=== PATIENT | female | born 1980 | race Caucasian/White ===

== ENCOUNTER 2021-05-29 11:41 | Inpatient (IN) | payer OTHER, SELFPAY ==
[~2021-05-29] VITALS: Ht 170.2 cm; Wt 116.6 kg
--- NOTE | 2021-05-29 11:46 | NUR ---
ASHLEY MCKEON VIA GURNEY TO BED 02.
[2021-05-29 11:52] VITALS: BP 130/90
--- NOTE | 2021-05-29 11:58 | NUR ---
Respiratory Therapist at bedside for respiratory intervention. Patient tolerated.
[2021-05-29] MEDS ORDERED: ASPIRIN 81 MG TAB.CHEW PO ONE (12:00)
[2021-05-29] MEDS ORDERED: NITROGLYCERIN 50 MG/D5W PREMIX 250 ML IV ONE (12:00)
[2021-05-29] MEDS ORDERED: ALBUTEROL SULFATE/IPRATROPIU 3 ML SOL IH ONE ×2 (12:00→12:05)
[2021-05-29] MEDS ORDERED: MAGNESIUM SULFATE 50% 1,000 MG in NACL 0.9% 50 ML IV ONE (12:05)
[2021-05-29] MEDS ORDERED: ALBUTEROL 0.083% 2.5 MG/3 ML NEBU INH ONE (12:05)
[2021-05-29] MEDS ORDERED: methylPREDNISolone SS 125 MG/2 ML VIAL IVP ONE (12:05)
[2021-05-29] MEDS ORDERED: IPRATROPIUM 0.02% 0.5 MG/2.5 ML NEBU INH ONE (12:05)
--- NOTE | 2021-05-29 12:05 | NUR ---
40 y/o female presents to ed with sob, pt states she has been having sob since january 26, 2021, but has increased sob and diffculty breathing that started today. pt was picked up from [facility], on scene amr states pt was 80% on RA. given 10mg total of albuterol breathing tx. iv was placed 20g on left forearm. denies n/v/d. skin is pale/cool/dry/edematous, edema on bilateral lower extremities, pitting edema +3; aaox4, general weakness, lungs wheezing bl, shallow/tachypnea/accessory muscle use; hr even and tachy rate 122; pt denies any fever or cough at this time; patient states pain of 7/10 at this time; patient positioned for comfort; hob elevated; bedrails x2; bed down. ermd made aware of pt status. pmh: htn, copd, asthma allergy: lexiean
[2021-05-29] MEDS ORDERED: FUROSEMIDE 40 MG/4 ML VIAL IVP ONE ×2 (12:45→15:11)
--- NOTE | 2021-05-29 12:56 | NUR ---
cristhian and novel were swabbed
--- NOTE | 2021-05-29 13:46 | NUR ---
linens soiled with urine, pt linen was changed, diapered and repositioned to high fowlers. rt resting at this time
[2021-05-29 14:03] LABS: BASOPHILS % (AUTO) 0.1 % (0.0-2.0); HEMATOCRIT 22.1 % (36-48); HEMOGLOBIN 7.4 g/dL (12.0-16.0); LYMPHOCYTES # (AUTO) 0.4 K/uL (2.5-16.5); LYMPHOCYTES % (AUTO) 5.3 % (20.5-51.1); MEAN CORPUSCULAR HEMOGLOBIN 29 pg (27-31); MEAN CORPUSCULAR HGB CONC 33 g/dL (33-37); MEAN CORPUSCULAR VOLUME 87.2 fL (80-94); MONOCYTES # (AUTO) 0.4 K/uL (0.8-1.0); MONOCYTES % (AUTO) 5.3 % (1.7-9.3); NEUTROPHILS # (AUTO) 6.6 K/uL (1.8-7.7); NEUTROPHILS % (AUTO) 89.3 % (42.2-75.2); PLATELET COUNT (AUTO) 341 K/uL (140-450); RED BLOOD CELL COUNT(AUTO) 2.54 MIL/uL (4.20-5.40); RED CELL DISTRIBUTION WIDTH 18.7 % (11.6-13.7); WHITE BLOOD COUNT (AUTO) 7.4 K/uL (4.8-10.8)
[2021-05-29 14:53] LABS: ALBUMIN 2.7 g/dL (3.4-5.0); BILIRUBIN,DIRECT 0.1 mg/dL (0.0-0.3); TOTAL BILIRUBIN 0.4 mg/dL (0.0-1.0)
[2021-05-29 15:05] LABS: ANION GAP 13.9 (8-16); CARBON DIOXIDE 30.4 mmol/L (21-32); POTASSIUM 3.3 mmol/L (3.5-5.1)
[2021-05-29 15:06] LABS: CREATININE 1.1 mg/dL (0.6-1.3)
[2021-05-29] MEDS ORDERED: MAG SULF 2000 MG/WATER PREMIX 50 ML IV ONE (15:14)
--- NOTE | 2021-05-29 15:14 | NUR ---
per pharmacy, pull 2000mg bag and only give half for ordered 1000mg
--- NOTE | 2021-05-29 15:20 | NUR ---
Ultrasound at bedside.
--- NOTE | 2021-05-29 15:58 | NUR ---
linens, diaper and padding changed at this time
--- NOTE | 2021-05-29 18:22 | NUR ---
linens, diaper and padding changed at this time. oscar area cleaned. purewick was placed in oscar area.
--- NOTE | 2021-05-29 19:20 | NUR ---
pt is awake and alert. vss. pt in stable condition. pt given blanket, ice chips, and phone. all needs met at this time.
--- NOTE | 2021-05-29 21:00 | NUR ---
pt is awake and alert. vss.pt in stable condition. all needs met at this time. bed locked in lowest position. side rails x2 for safety.
--- NOTE | 2021-05-29 22:00 | NUR ---
PATIENT TRANSFERRED TO ICU BED 4 FROM ED. PATIENT ON BIPAP SATURATING IN THE 90'S%. RT PRESENT ASSESSING PATIENT DURING TRANSFER. NO SIGNS OF ACUTE DISTRESS NOTED, PATIENT AWAKE AOX4, NITRO DRIP RUNNING AT 10 MCG VIA LEFT 22 GAUGE WRIST. NOTED TO HAVE LEFT LEG SWELLING WITH REDNESS. SKIN INTACT WITH NO OPEN WOUNDS NOTED. ALL SAFETY MEASURES IN PLACE WILL CONTINUE TO CLOSELY MONITOR.
--- NOTE | 2021-05-29 22:01 | NUR ---
Patient will be admitted to care of . Admited to ICU. Will go to room ICU4 . Belongings list completed. Report to BRI GARCÍA.
[2021-05-30] VITALS (16 sets, daily range): BP systolic 84–136; BP diastolic 52–88
--- NOTE | 2021-05-30 00:20 | NUR ---
PLACED PT ON 10L OXYMIZER, PT IS SATURATING 93% OR ABOVE. BI-PAP REMAINS ON STAND-BY IN THE ROOM. PT IS IN NO RESPIRATORY DISTRESS. WILL CONTINUE TO MONITOR.
--- NOTE | 2021-05-30 03:00 | NUR ---
FOX CATHETER INSERTED, PATIENT TOLERATED WELL. PATIENT ON OXIMIZER AT 10 L WITH O2 SAT IN THE 90'S, NO SIGNS OF ACUTE DISTRESS NOTED. PATIENT STILL AWAKE AOX4. WILL CONTINUE TO MONITOR.
--- NOTE | 2021-05-30 07:30 | NUR ---
RECEIVED REPORT FROM GAMES DEALER. PT AWAKE IN BED WITH HOB ELEVATED, AOX4, ABLE TO MAKE NEEDS KNOWN, NO C/O PAIN, NO SOB AT REST, SOB UPON EXERTION. ON O2 9L VIA OXYMIZER, SAT AT 90s. SR ON MONITOR. WITH PERIPHERAL OV AT LW 22G AND RH 22G RUNNING NITRO DRIP AT 10MCG. FOX INTACT AND DRAINING.
--- NOTE | 2021-05-30 08:49 | NUR ---
PATIENT HAS BEEN SCREENED AND CATEGORIZED MODERATE NUTRITION RISK. PATIENT WILL BE SEEN WITHIN 3-5 DAYS OF ADMISSION. 06/01/21-06/03/21 REVIEWED BY MARK HERRERA RD
[2021-05-30] MEDS ORDERED: ACETAMINOPHEN 325 MG TAB PO PRN (08:55)
[2021-05-30] MEDS ORDERED: ONDANSETRON 4 MG/2 ML VIAL IM/IVP PRN (08:55)
[2021-05-30] MEDS ORDERED: DOCUSATE SODIUM 100 MG GELCAP PO PRN (08:55)
[2021-05-30] MEDS ORDERED: HYDROcodone/APAP 7.5/325 MG 1 TAB PO PRN (08:55)
[2021-05-30] MEDS ORDERED: POTASSIUM CHLORIDE 10 MEQ TABER PO PRN (08:55)
[2021-05-30] MEDS ORDERED: guaiFENesin DM 200/20 MG-10 ML 10 ML UDC PO PRN (08:55)
[2021-05-30] MEDS ORDERED: FUROSEMIDE 20 MG/2 ML VIAL IVP SCH (09:00)
[2021-05-30] MEDS: PANTOPRAZOLE 40 MG TABEC PO SCH (09:00)
[2021-05-30] MEDS: methylPREDNISolone SS 40 MG/ML VIAL IVP SCH ×2 (09:00→22:01)
[2021-05-30] MEDS ORDERED: ALBUTEROL SULFATE/IPRATROPIU 3 ML SOL IH PRN (09:00)
--- NOTE | 2021-05-30 09:00 | NUR ---
DUE MEDS GIVEN TOLERATED WELL
[2021-05-30] MEDS ORDERED: METOCLOPRAMIDE 10 MG/2 ML INJ VIAL IVP PRN (09:35)
--- NOTE | 2021-05-30 10:00 | NUR ---
CALLED [facility], [facility], TO VERIFY DOSE. WILL FAX AUTH
[2021-05-30] MEDS: FUROSEMIDE 40 MG/4 ML VIAL IVP SCH ×2 (10:27→21:59)
--- NOTE | 2021-05-30 10:50 | NUR ---
REPORT GIVEN TO CHERRY GREGORY
[2021-05-30] MEDS ORDERED: TRAZ-343 PO (11:10)
[2021-05-30] MEDS ORDERED: METF-430 PO (11:10)
[2021-05-30] MEDS ORDERED: FLUO40CA6 PO (11:10)
[2021-05-30] MEDS ORDERED: METO-485 PO (11:10)
[2021-05-30] MEDS ORDERED: PRAZ1CAP5 PO (11:10)
[2021-05-30] MEDS ORDERED: FURO-570 PO (11:10)
[2021-05-30] MEDS ORDERED: SPIMDI INH (11:10)
[2021-05-30] MEDS ORDERED: ACAM333T PO (11:10)
[2021-05-30] MEDS ORDERED: NALO4SPR NS (11:10)
[2021-05-30] MEDS ORDERED: CABE0.5T1 PO (11:10)
[2021-05-30] MEDS ORDERED: METO50TE2 PO (11:10)
[2021-05-30] MEDS ORDERED: SYN.075 PO (11:10)
[2021-05-30] MEDS ORDERED: BUPR300T70 PO (11:10)
[2021-05-30] MEDS ORDERED: LAM25 PO (11:10)
[2021-05-30] MEDS ORDERED: PRED20TA5 PO (11:10)
[2021-05-30] MEDS ORDERED: DABI150C PO (11:10)
--- NOTE | 2021-05-30 12:00 | NUR ---
ASSUMED CARE OF PT, DENIES CP AT THIS TIME. AWAKE AND ALERT
[2021-05-30] MEDS ORDERED: DEXTROSE 50% 50 ML SYR IVP PRN (13:25)
[2021-05-30] MEDS ORDERED: INSULIN LISPRO SLIDING SCALE 100 UNITS/ML VIAL SUBQ PRN (13:25)
[2021-05-30] MEDS: PIPERACILLIN/TAZOBACTAM 3.375 GM in DEXTROSE 5% 50 ML IV SCH ×2 (13:37→21:58)
--- NOTE | 2021-05-30 14:21 | NUR ---
PT AWAKE AND ALERT, DENIES PAIN. NO ACUTE CHANGES IN PT STATUS
[2021-05-30] MEDS ORDERED: CRUSHER, PILL MC ONE (14:37)
[2021-05-30] MEDS: DABIGATRAN ETEXILATE MESYLAT 75 MG CAP PO SCH ×2 (15:00→22:03)
[2021-05-30] MEDS: METHADONE 10 MG TAB PO SCH (15:00)
--- NOTE | 2021-05-30 15:02 | NUR ---
DR CONTRERAS AT BEDSIDE EVALUATING PATIENT
[2021-05-30] MEDS: BLOOD GLUCOSE MONITORING 1 DEV DEV FS SCH ×2 (16:35→21:25)
--- NOTE | 2021-05-30 17:51 | NUR ---
pt awake and alert, received juice per request. does not appear in distress.
[2021-05-30 17:56] LABS: PROTHROMBIN TIME 9.7 secs (10.8-13.4)
[2021-05-30 18:05] LABS: CHOL/HDL RATIO 2.3 (1-4.5); FREE T4 (FREE THYROXINE) 0.73 ng/dL (0.76-1.46); MAGNESIUM 1.8 mg/dL (1.8-2.4); THYROID STIMULATING HORMONE 1.09 uIU/mL (0.34-3.74)
--- NOTE | 2021-05-30 18:51 | NUR ---
PT SEATED UPRIGHT GIVEN DINNER TRAY. DOES NOT APPEAR IN DISTRESS. NO ACUTE CHANGES IN PT STATUS
--- NOTE | 2021-05-30 20:00 | NUR ---
RECEIVED PATIENT AWAKE IN BED. PATIENT AWAKE AND ALERT. PT DENIES ANY DISCOMFORT OR PAIN AT THIS TIME. PT ON 9L 02 VIA OXIMIZER. BLE EDEMA NOTED. FOX CATH IN PLACE, DRAINING CLEAR YELLOW URINE. PLAN OF CARE DISCUSSED. PATIENT VERBALIZED UNDERSTANDING. BED LOWERED WITH CALL LIGHT WITHIN REACH
--- NOTE | 2021-05-30 21:59 | NUR ---
DUE MEDS ADMINISTERED. PT TOLERATED WELL
[2021-05-30] MEDS: ZOLPIDEM 5 MG TAB PO PRN (22:03)
[2021-05-31] VITALS: BP 111/63
--- NOTE | 2021-05-31 03:06 | NUR ---
PT ASLEEP IN BED. NO S/S OF DISTRESS NOTED
[2021-05-31 04:00] VITALS: BP 118/64
[2021-05-31] MEDS: PIPERACILLIN/TAZOBACTAM 3.375 GM in DEXTROSE 5% 50 ML IV SCH ×3 (06:01→21:00)
[2021-05-31 06:47] LABS: BASOPHILS % (AUTO) 0.2 % (0.0-2.0); EOSINOPHILS % (AUTO) 0.3 % (0.0-4.0); HEMATOCRIT 22.8 % (36-48); HEMOGLOBIN 7.6 g/dL (12.0-16.0); LYMPHOCYTES # (AUTO) 0.4 K/uL (2.5-16.5); LYMPHOCYTES % (AUTO) 5.6 % (20.5-51.1); MEAN CORPUSCULAR HEMOGLOBIN 29 pg (27-31); MEAN CORPUSCULAR HGB CONC 33 g/dL (33-37); MONOCYTES # (AUTO) 0.3 K/uL (0.8-1.0); MONOCYTES % (AUTO) 4.5 % (1.7-9.3); NEUTROPHILS # (AUTO) 6.1 K/uL (1.8-7.7); NEUTROPHILS % (AUTO) 89.4 % (42.2-75.2); PLATELET COUNT (AUTO) 374 K/uL (140-450); RED BLOOD CELL COUNT(AUTO) 2.62 MIL/uL (4.20-5.40); WHITE BLOOD COUNT (AUTO) 6.9 K/uL (4.8-10.8)
[2021-05-31] MEDS: BLOOD GLUCOSE MONITORING 1 DEV DEV FS SCH ×3 (07:03→21:15)
--- NOTE | 2021-05-31 07:21 | NUR ---
PATIENT ENDORSED TO AM NURSE FOR CONTINUITY OF CARE
[2021-05-31 07:22] LABS: CREATININE 0.9 mg/dL (0.6-1.3)
--- NOTE | 2021-05-31 07:22 | NUR ---
RECEIVED BEDSIDE REPORT FROM CRACKING UNIT OPERATOR NURSE THANIA. PT RESTING, NO DISTRESS NOTED, ON 8LPM O2 VIA OXYMIZER, TOLERATED WELL, SATURATING @ 100%. IV TO LEFT AC 20G, PATENT INTACT, SL, IV TO LEFT WRIST 22G, PATENT INTACT, INFUSING NS @ TKO. TOLERATED WELL. FOX CATH IN PLACE DRAINING TO GRAVITY. INITIAL ASSESSMENT DONE, ALL SAFETY PRECAUTION MET, CALL LIGHT WITHIN REACH, WILL CONTINUE TO MONITOR.
[2021-05-31 07:24] LABS: ANION GAP 7.7 (8-16); CARBON DIOXIDE 45.3 mmol/L (21-32)
[2021-05-31 08:00] VITALS: BP 107/49
[2021-05-31] MEDS: ALBUTEROL SULFATE/IPRATROPIU 3 ML SOL IH SCH ×3 (09:09→20:13)
[2021-05-31] MEDS: METHADONE 10 MG TAB PO SCH (09:12)
[2021-05-31] MEDS: FUROSEMIDE 40 MG/4 ML VIAL IVP SCH ×2 (09:12→20:59)
[2021-05-31] MEDS: methylPREDNISolone SS 40 MG/ML VIAL IVP SCH ×2 (09:12→20:59)
[2021-05-31] MEDS: PANTOPRAZOLE 40 MG TABEC PO SCH (09:13)
[2021-05-31] MEDS: DABIGATRAN ETEXILATE MESYLAT 75 MG CAP PO SCH ×2 (09:13→20:51)
--- NOTE | 2021-05-31 09:13 | NUR ---
DUE MEDICATIONS ADMINISTERED, PT TOLERATED WELL, NO DISTRESS NOTED, WILL CONTINUE TO MONITOR
--- NOTE | 2021-05-31 11:11 | NUR ---
ENDORSED PT TO TELE NURSE JEREMY GREGORY, FOR CONTINUOUS OF CARE, PT IS GOING TO BE TRANSFERRED TO ROOM 118.
--- NOTE | 2021-05-31 11:25 | NUR ---
TRANSFERRED PT TO ROOM 118, PT TOLERATED WELL. CALL LIGHT WITHIN REACH. BED POSITION IN LOWEST.
[2021-05-31 12:00] VITALS: BP 110/74
[2021-05-31 12:44] LABS: T4 (THYROXINE) 4.2 ug/dL (4.5 - 12.0)
[2021-05-31] MEDS ORDERED: acetaZOLAMIDE sodium 500 MG VIAL IVP SCH (14:00)
[2021-05-31 16:00] VITALS: BP 104/60
[2021-05-31] MEDS ORDERED: NITROGLYCERIN 0.4 MG TAB SL PRN (17:15)
[2021-05-31] MEDS ORDERED: NITROGLYCERIN 0.4 MG TAB SL ONE (17:17)
[2021-05-31 20:00] VITALS: BP 114/67
--- NOTE | 2021-05-31 20:12 | NUR ---
PT SLEEPING COMFORTABLY ON 8L OXY W/ NO DISTRESS NOTED WILL CONTINUE TO MONITOR
[2021-05-31] MEDS: ZOLPIDEM 5 MG TAB PO PRN (20:54)
[2021-06-01] VITALS: BP 107/50
[2021-06-01 04:00] VITALS: BP 117/55
[2021-06-01] MEDS: PIPERACILLIN/TAZOBACTAM 3.375 GM in DEXTROSE 5% 50 ML IV SCH ×3 (05:12→21:38)
[2021-06-01] MEDS: BLOOD GLUCOSE MONITORING 1 DEV DEV FS SCH ×5 (06:31→20:52)
--- NOTE | 2021-06-01 07:30 | NUR ---
RECEIVED REPORT FROM HOUSING ASSISTANT PROPERTY MANAGER NURSE FOR CONTINUITY OF CARE. PT IN BED AWAKE. RESPIRATION EVEN AND UNLABORED. ON O2 VIA OXIMIZER AT 8L. DENIES PAIN AT THIS TIME. CALL LIGHT WITHIN REACH. ALL SAFETY MEASURES IN PLACE.
[2021-06-01 07:40] LABS: BASOPHILS % (AUTO) 0.1 % (0.0-2.0); EOSINOPHILS % (AUTO) 0.3 % (0.0-4.0); HEMATOCRIT 22.9 % (36-48); HEMOGLOBIN 7.5 g/dL (12.0-16.0); LYMPHOCYTES # (AUTO) 0.6 K/uL (2.5-16.5); MEAN CORPUSCULAR HEMOGLOBIN 28 pg (27-31); MEAN CORPUSCULAR HGB CONC 33 g/dL (33-37); MEAN CORPUSCULAR VOLUME 86.4 fL (80-94); MONOCYTES # (AUTO) 0.5 K/uL (0.8-1.0); MONOCYTES % (AUTO) 8.1 % (1.7-9.3); NEUTROPHILS # (AUTO) 5.2 K/uL (1.8-7.7); NEUTROPHILS % (AUTO) 81.5 % (42.2-75.2); PLATELET COUNT (AUTO) 411 K/uL (140-450); RED BLOOD CELL COUNT(AUTO) 2.65 MIL/uL (4.20-5.40); RED CELL DISTRIBUTION WIDTH 18.2 % (11.6-13.7); WHITE BLOOD COUNT (AUTO) 6.3 K/uL (4.8-10.8)
[2021-06-01] MEDS: ALBUTEROL SULFATE/IPRATROPIU 3 ML SOL IH SCH ×3 (07:55→19:21)
[2021-06-01 08:00] VITALS: BP 116/58
[2021-06-01 08:03] LABS: ANION GAP 8.9 (8-16); CREATININE 0.7 mg/dL (0.6-1.3); POTASSIUM 4.2 mmol/L (3.5-5.1)
[2021-06-01 08:05] LABS: CARBON DIOXIDE 43.3 mmol/L (21-32)
--- NOTE | 2021-06-01 08:05 | NUR ---
RECEIVED CALL FROM [facility] FOR CRITICAL VALUE CO2 43.[address] CONTRERAS MADE AWARE OF CRITICAL VALUE RESULTS. NO CHANGE AT THIS TIME.
[2021-06-01] MEDS: FUROSEMIDE 40 MG/4 ML VIAL IVP SCH (09:55)
[2021-06-01] MEDS: DABIGATRAN ETEXILATE MESYLAT 75 MG CAP PO SCH ×2 (09:55→20:50)
[2021-06-01] MEDS: METHADONE 10 MG TAB PO SCH (09:55)
[2021-06-01] MEDS: methylPREDNISolone SS 40 MG/ML VIAL IVP SCH ×2 (09:55→21:38)
[2021-06-01] MEDS: PANTOPRAZOLE 40 MG TABEC PO SCH (09:56)
--- NOTE | 2021-06-01 10:35 | NUR ---
PT IN BED AWAKE, A/O X 4. BREATHING SYMMETRICAL. O2 TITRATED TO 6L VIA OXIMIZER AND TOLERATING WELL. DENIES PAIN OR DISCOMFORT AT THIS TIME. SCHEDULED AM MEDS GIVEN PER MD ORDER. CALL LIGHT WITHIN REACH. ALL SAFETY MEASURES IN PLACE. WILL CONTINUE TO MONITOR.
[2021-06-01 12:00] VITALS: BP 109/73
--- NOTE | 2021-06-01 13:00 | NUR ---
PT IN BED, ALERT AND AWAKE. RESPIRATION EVEN AND UNLABORED. ON O2 VIA OXIMIZER AT 6L, TOLERATING WELL. O2 SAT AT 100% BLOOD SUGAR WAS 152 AT 1222, INSULIN GIVEN PER SLIDING SCALE PER MD ORDER. SCHEDULED MEDICATION GIVEN ORDERED. CALL LIGHT PLACED WITHIN REACH.
--- NOTE | 2021-06-01 14:46 | NUR ---
SPOKE TO . FOX CATHETER WILL BE REMOVED. PT GIVEN WALKER TO USE FOR AMBULATION TO AND FROM RESTROOM. RT NOTIFIED FOR O2 EXTENSION TUBING. PATIENT SATURATING AT 95% ON 6L NC OXIMIZER
[2021-06-01 16:00] VITALS: BP 126/71
--- NOTE | 2021-06-01 16:30 | NUR ---
BLOOD SUGAR 144, NO INSULIN COVERAGE. PT IN BED, AWAKE. BREATHING EVEN AND UNLABORED. ON O2 VIA OXIMIZER AT 6L. HOB KEPT ELEVATED. CALL LIGHT WITHIN REACH. WILL CONTINUE TO MONITOR
--- NOTE | 2021-06-01 19:21 | NUR ---
PT IS SITTING UP IN BED WITH NO SIGNS OF RESPIRATORY DISTRESS SATING 93% ON 4LPM OXYMIZER. PT HAS A DRY NON PRODUCTIVE COUGH, BS COARSE APICES DIMINISHED BASES, TOLERATED HHN TX WELL. WILL CONTINUE TO MONITOR.
--- NOTE | 2021-06-01 19:38 | NUR ---
ENDORSED PT TO ANIMATION CAMERA OPERATOR NURSE
--- NOTE | 2021-06-01 19:39 | NUR ---
RECEIVED REPORT FROM AM SHIFT NURSE FOR CONTINUITY OF CARE. PATIENT IN BED AWAKE, ALERT AND VERBALLY RESPONSIVE. ABLE TO VERBALIZED NEEDS. NOT IN DISTRESS. DENIES ANY PAIN OR DISCOMFORT AT THIS TIME. BREATHING EVEN AND UNLABORED WITH NO SOB NOTED. ON O2 VIA OXIMIZER AT 8L. ALL SAFETY MEASURES IN PLACE. CALL LIGHT WITHIN REACH. WILL CONTINUE WITH THE CURRENT PLAN OF CARE.
[2021-06-01 20:00] VITALS: BP 107/55
[2021-06-01] MEDS: ZOLPIDEM 5 MG TAB PO PRN (20:51)
--- NOTE | 2021-06-01 20:53 | NUR ---
ADMINISTERED SCHEDULE MEDICATIONS PER MD ORDER. TOLERATED WELL. NO ASE NOTED. ALL SAFETY MEASURES IN PLACE. CALL LIGHT WITHIN REACH. WILL CONTINUE TO MONITOR.
--- NOTE | 2021-06-01 23:21 | NUR ---
CHECKED ON PATIENT. PATIENT SLEEPING WELL. VISIBLE CHEST RISING AND FALLING. NO SOB NOTED. ALL SAFETY MEASURES IN PLACE. CALL LIGHT WITHIN REACH. WILL CONTINUE TO MONITOR.
[2021-06-02] VITALS: BP 113/60
--- NOTE | 2021-06-02 01:37 | NUR ---
ROUNDED ON PATIENT. SLEEPING WELL. VISIBLE CHEST RISING AND FALLING. ALL SAFETY MEASURES IN PLACE. CALL LIGHT WITHIN REACH. WILL CONTINUE TO MONITOR.
--- NOTE | 2021-06-02 03:51 | NUR ---
ANSWERED PATIENT CALL LIGHT. PATIENT JUST WANT TO CHECK HER BP. BP IS OK 135/70 PULSE=74 [id number]=57.DENIES ANY PAIN AT THIS TIME. CALL LIGHT WITHIN REACH. WILL CONTINUE TO MONITOR.
[2021-06-02 04:00] VITALS: BP 135/70
--- NOTE | 2021-06-02 05:55 | NUR ---
ROUNDED ON PATIENT. PATIENT ASLEEP. CALL LIGHT WITHIN REACH. WILL CONTINUE TO MONITOR.
[2021-06-02] MEDS: PIPERACILLIN/TAZOBACTAM 3.375 GM in DEXTROSE 5% 50 ML IV SCH ×2 (06:23→12:14)
[2021-06-02] MEDS: BLOOD GLUCOSE MONITORING 1 DEV DEV FS SCH ×2 (07:00→11:29)
[2021-06-02] MEDS: ALBUTEROL SULFATE/IPRATROPIU 3 ML SOL IH SCH (07:23)
--- NOTE | 2021-06-02 07:23 | NUR ---
RECEIVED REPORT FROM ROOFER APPRENTICE NURSE. NO S/S OF DISTRESS. BREATHING SYMMETRICAL. CALL LIGHT IN REACH. ALL SAFETY MEASURES IN PLACE.
[2021-06-02 07:26] LABS: BASOPHILS % (AUTO) 0.1 % (0.0-2.0); EOSINOPHILS % (AUTO) 0.1 % (0.0-4.0); HEMATOCRIT 24.6 % (36-48); LYMPHOCYTES # (AUTO) 0.7 K/uL (2.5-16.5); LYMPHOCYTES % (AUTO) 10.1 % (20.5-51.1); MEAN CORPUSCULAR HEMOGLOBIN 28 pg (27-31); MEAN CORPUSCULAR HGB CONC 32 g/dL (33-37); MEAN CORPUSCULAR VOLUME 86.9 fL (80-94); MONOCYTES # (AUTO) 0.3 K/uL (0.8-1.0); MONOCYTES % (AUTO) 4.6 % (1.7-9.3); NEUTROPHILS % (AUTO) 85.1 % (42.2-75.2); PLATELET COUNT (AUTO) 448 K/uL (140-450); RED BLOOD CELL COUNT(AUTO) 2.84 MIL/uL (4.20-5.40); RED CELL DISTRIBUTION WIDTH 18.4 % (11.6-13.7); WHITE BLOOD COUNT (AUTO) 7.1 K/uL (4.8-10.8)
--- NOTE | 2021-06-02 07:35 | NUR ---
ENDORSED PATIENT REPORT TO AM SHIFT NURSE FOR CONTINUITY OF CARE. PATIENT IS STABLE.
[2021-06-02 07:50] LABS: CREATININE 0.7 mg/dL (0.6-1.3); POTASSIUM 4.7 mmol/L (3.5-5.1)
--- NOTE | 2021-06-02 07:58 | NUR ---
SPOKE TO RT, PT O2 WAS TITRATED TO 3L OXIMIZER. PT O2 WAS INCREASED TO 4L AFTER DESTAING TO 91%. PT TOLERATING WELL. NO S/S OF DISTRESS. CALL LIGHT IN REACH. ALL SAFETY MEASURES IN PLACE
[2021-06-02 08:00] VITALS: BP 143/78
[2021-06-02 08:04] LABS: CARBON DIOXIDE 44.7 mmol/L (21-32)
[2021-06-02] MEDS ORDERED: FUROSEMIDE 40 MG/4 ML VIAL IVP SCH (09:00)
[2021-06-02] MEDS: PANTOPRAZOLE 40 MG TABEC PO SCH (09:36)
[2021-06-02] MEDS: methylPREDNISolone SS 40 MG/ML VIAL IVP SCH (09:36)
--- NOTE | 2021-06-02 09:36 | NUR ---
ALL SCHEDULED AM MEDICATIONS GIVEN PER MD ORDER. PT IN BED, RESPIRATION EVEN AND UNLABORED. DENIES PAIN. CALL LIGHT WITHIN EASY REACH
[2021-06-02] MEDS: DABIGATRAN ETEXILATE MESYLAT 75 MG CAP PO SCH (09:37)
[2021-06-02] MEDS: METHADONE 10 MG TAB PO SCH (09:38)
--- NOTE | 2021-06-02 10:09 | NUR ---
TITRATED PT O2 TO 3L OXIMIZER. PT SATURATION 95-97
[2021-06-02] MEDS ORDERED: traZODone 50 MG TAB PO PRN (10:20)
--- NOTE | 2021-06-02 10:33 | NUR ---
CHANGED OXYGEN DEVICE: OXYMIZER AT 3 LPM TO NASAL CANNULA AT [address] SATURATION 94% DR. ALICIA STANFORD AT BEDSIDE AND AWARE (1038) LAMONTEN/RN NOTIFIED
--- NOTE | 2021-06-02 10:40 | NUR ---
PT ON 3L VIA NC. CLEARED BY CHANNEL LIP WETTER FOR DISCHARGE TODAY
--- NOTE | 2021-06-02 11:32 | NUR ---
BLOOD SUGAR 96, NO INSULIN COVERAGE NEEDED. PT IN BED, ALERT, AWAKE. ON O2 VIA NC AT 3L. ENCOURAGED TO DO DEEP BREATHING. HOB KEPT ELEVATED. DENIES PAIN AT THIS TIME. WILL CONTINUE TO MONITOR
[2021-06-02 12:00] VITALS: BP 126/64
--- NOTE | 2021-06-02 12:12 | NUR ---
CALLED DR. ALICIA STANFORD AT [facility] AB RESULTS EXCHANGE/[place] TO PAGE TARSHA PATIENT INFO AND CALL BACK NUMBER GIVEN
--- NOTE | 2021-06-02 12:15 | NUR ---
CALL BACK FROM DR. VARGAS REVIEWED ABG RESULTS POSSIBLE VENOUS PATIENT STATUS: SATURATION 93% ON SUPPLEMENTAL OXYGEN 3 LPM VIA NC NO DISTRESS GOOD CHEST RISE AIRWAY PATENT LOC AWAKE AND ALERT "TALKING ON PHONE" NO NEW ORDERS
[2021-06-02 12:54] VITALS: BP 143/78
[2021-06-02] MEDS ORDERED: METOPROLOL 50 MG TAB PO SCH (13:00)
[2021-06-02] MEDS ORDERED: ACAMPROSATE CALCIUM 333 MG PO SCH (13:00)
--- NOTE | 2021-06-02 14:46 | NUR ---
PT DISCHARGED HOME. TELE BOX REMOVED. ID BAND REMOVED. IV REMOVED, CANULA INTACT. NO S/S OF DISTRESS. CALL LIGHT IN REACH. ALL SAFETY MEASURES IN PLACE
[2021-06-02] MEDS ORDERED: PRAZOSIN 1 MG CAP PO SCH (21:00)
[2021-06-02] MEDS ORDERED: FUROSEMIDE 40 MG TAB PO SCH (21:00)
[2021-06-03] MEDS ORDERED: LEVOTHYROXINE 0.075 MG TAB PO SCH (06:30)
[2021-06-03] MEDS ORDERED: FLUoxetine 20 MG CAP PO SCH (09:00)
[2021-06-03] MEDS ORDERED: CABERGOLINE 0.5 MG PO SCH (09:00)
[2021-06-03] MEDS ORDERED: NON-FORMULARY ITEM (Bupropion HCl* (Wellbutrin Xl*) 300 MG) PO SCH (09:00)
[2021-06-03] MEDS ORDERED: buPROPion 150 MG TABER PO SCH (09:00)
[2021-06-06] MEDS ORDERED: LEVO750T51 PO (10:18)
== END 2021-06-02 14:45 | disposition home or self-care (01) | DRG 193 ==
LOC: MED 11:41 → MTU 21:10 → MIC 05-30 00:13 → MTU 05-31 11:30
PROVIDERS: ADMIT Family Medicine; ATTEND Family Medicine
PROC: 5A09357 Assistance with Respiratory Ventilation, Less than 24 Consecutive Hours, Continuous Positive Airway Pressure (ICD-10-PCS; principal; 2021-05-29)
DX: J18.9 Pneumonia, unspecified organism (principal); J96.21 Acute and chronic respiratory failure with hypoxia; E43 Unspecified severe protein-calorie malnutrition; I50.43 Acute on chronic combined systolic (congestive) and diastolic (congestive) heart failure; E87.1 Hypo-osmolality and hyponatremia; J44.0 Chronic obstructive pulmonary disease with (acute) lower respiratory infection; J44.1 Chronic obstructive pulmonary disease with (acute) exacerbation; N17.9 Acute kidney failure, unspecified; F11.20 Opioid dependence, uncomplicated; Z68.41 Body mass index [BMI] 40.0-44.9, adult; E66.01 Morbid (severe) obesity due to excess calories; E03.9 Hypothyroidism, unspecified; Z20.822 Contact with and (suspected) exposure to COVID-19; D63.8 Anemia in other chronic diseases classified elsewhere; E87.6 Hypokalemia; I27.81 Cor pulmonale (chronic); N18.9 Chronic kidney disease, unspecified; Z87.891 Personal history of nicotine dependence; Z88.8 Allergy status to other drugs, medicaments and biological substances
CPT/HCPCS: 36415; 36600; 71045; 71250; 71275; 76705; 80048; 80076; 82150; 82803; 82948; 83036; 83690; 83735; 83880; 84100; 84436; 84439; 84443; 84479; 84484; 85025; 85610; 85730; 87070; 87081; 87205; 93005; 93970; 94640; 96374; 96375; 99291; J1120; J1815; J1940; J2543; J2920; J2930; J3475; J3490; J7060; Q0092; Q9967; U0003